=== PATIENT | male | born 1980 | race Caucasian/White ===

== ENCOUNTER 2022-07-05 21:04 | Emergency (ER) | payer SELFPAY ==
[~2022-07-05 21:04] MED LIST: CLARITIN10 MG PO; COMBIVENT1 ARO IH; MEDROL DOSEPAK4 MG PO; ZITHROMAX Z PA250 MG PO
== END 2022-07-05 22:17 | disposition home or self-care (01) ==
LOC: ED 21:04
DX: S61.213A Laceration without foreign body of left middle finger without damage to nail, initial encounter (principal); W45.8XXA Other foreign body or object entering through skin, initial encounter; Y93.89 Activity, other specified; Y92.89 Other specified places as the place of occurrence of the external cause; Y99.8 Other external cause status